=== PATIENT | male | born 1945 | race Caucasian/White ===

== ENCOUNTER 2016-11-30 11:01 | Day surgery (SDC) | payer MEDICARE, BC ==
[~2016-11-30 11:01] MED LIST: Dexamethasone 4 MG/ML 5 ML MDV ONE; EPINEPHrine 1:1000 1 MG/ML SDV ONE; Lactated Ringers 1,000 ML IV SCH; Lactated Ringers 1,000 ML ONE; Lidocaine 1%/Sod Bicarbonate in NS 8.4% 1 ML Syringe IV PRN; Ondansetron 4 MG/2 ML SDV ONE; Propofol 200 MG/20 ML SDV ONE; Rocuronium 50 MG/5 ML Vial ONE; Ropivacaine 0.5% 5 MG/ML 30 ML SDV ONE; Sodium Chloride 0.9% 10 ML Syringe FLUSH PRN; ceFAZolin 1 GM Vial ONE; fentaNYL 250 MCG/5 ML SDV ONE
[2016-11-30] MEDS ORDERED: fentaNYL 100 MCG/2 ML SDV ONE (11:03)
[2016-11-30] MEDS ORDERED: Midazolam 1 MG/ML 2 ML SDV ONE (11:03)
[2016-11-30] MEDS ORDERED: Lidocaine 1% 2 ML ONE (11:04)
[2016-11-30] MEDS ORDERED: ePHEDrine/Normal Saline 25 MG/5 ML Syringe ONE ×2 (11:27→13:12)
--- NOTE | 2016-11-30 11:37 | PCM.PREANE ---
Preanesthetic Assessment - Anesthesia/Transfusion/Family Hx Anesthesia History: Prior Anesthesia Without Reaction Family History of Anesthesia Reaction: No Transfusion History: No Prior Transfusion(s) - Review of Systems General: No Symptoms Pulmonary: No Symptoms Cardiovascular: No Symptoms Gastrointestinal: No symptoms Neurological: No Symptoms Other: Reports: None - Physical Assessment NPO Status Date: 11/29/16 NPO Status Time: 00:00 Pulse: 45 O2 Sat by Pulse Oximetry: 99 Respiratory Rate: 16 Blood Pressure: 144/88 Temperature: 36.7 C Height: 1.83 m Weight: 92.986 kg ASA Class: 2 Mental Status: Alert & Oriented x3 Airway Class: Mallampati = 1 Dentition: Reports: Normal Dentition Thyro-Mental Finger Breadths: 3 Mouth Opening Finger Breadths: 3 ROM/Head Extension: Full Lungs: Clear to auscultation, Normal respiratory effort Cardiovascular: Regular Rate, Regular Rhythm - Imaging/EKG Impressions: 11/22/16 EKG sinus ectopic atrial blanca 47 - Allergies Allergies/Adverse Reactions: Allergies Allergy/AdvReac Type Severity Reaction Status Date / Time No Known Allergies Allergy Verified 11/29/16 14:27 - Anesthesia Plan Pre-Op Medication Ordered: None - Acknowledgements Anesthesia Type Planned: General Anesthesia, Regional Block (interscalene block for post-op pain control) Pt an Appropriate Candidate for the Planned Anesthesia: Yes Alternatives and Risks of Anesthesia Discussed w Pt/Guardian: Yes Pt/Guardian Understands and Agrees with Anesthesia Plan: Yes PreAnesthesia Questionnaire HEENT History: Reports: Impaired vision, Other (see below) Other HEENT History: wears glasses, has partial Cardiovascular History: Reports: CAD, High cholesterol, [place], Stents Other Cardiovascular History: history of heart dysrhythmia, ischemic heart disease Respiratory History: Reports: Pneumonia, recurrent Gastrointestinal History: Reports: Other (see below) Other Gastrointestinal History: hemorrhoidectomy Genitourinary History: Reports: Renal calculus 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 History: Reports: None Musculoskeletal History: Reports: Other (see below) Other Musculoskeletal History: multilevel degenerative disc disease, R rotator cuff tear, cervclagia, knee and leg sprain Neurological History: Reports: None Psychiatric History: Reports: None Endocrine/Metabolic History: Reports: None Hematologic History: Reports: None Immunologic History: Reports: None Oncologic (Cancer) History: Reports: None Dermatologic History: Reports: None - Past Surgical History Head Surgeries/Procedures: Reports: None HEENT Surgical History: Reports: Oral surgery - SUBSTANCE USE Smoking Status *Q: Former Smoker (2008) Tobacco Use Within Last Twelve Months: No Second Hand Smoke Exposure: No Days Per Week of Alcohol Use: 0 Number of Drinks Per Day: 1 Total Drinks Per Week: 0 Recreational Drug Use History: No - HOME MEDS Home Medications: Home Meds Aspirin [Ecotrin] 81 mg PO DAILY 12/01/13 [History] atorvaSTATin [Lipitor] 80 mg PO DAILY 12/01/13 [History] Cyclobenzaprine [Flexeril] 10 mg PO TID PRN #40 tablet 11/30/16 [Rx] Hydrocodone/Acetaminophen [[place] 5-325 Tablet] 1 - 2 each PO Q6H PRN #40 tablet 11/30/16 [Rx] - CURRENT (IN HOUSE) MEDS Current Meds: Current Medications Lactated Ringer's (Ringers, Lactated) 1,000 mls @ 125 mls/hr IV ASDIRECTED INDERJIT Stop: 11/30/16 23:00 Lidocaine/Sodium Bicarbonate (Buffered Lidocaine 1% In Ns 8.4%) 0.25 ml IV ONETIME PRN PRN Reason: Prior to IV Start Stop: 11/30/16 18:00 Sodium Chloride (Saline Flush) 10 ml FLUSH ASDIRECTED PRN PRN Reason: Keep Vein Open Stop: 11/30/16 18:00 Discontinued Medications Cefazolin Sodium (Ancef) Confirm Administered Dose 2 gm .ROUTE .STK-MED ONE Stop: 11/30/16 10:26 Dexamethasone (Dexamethasone) Confirm Administered Dose 20 mg .ROUTE .STK-MED ONE Stop: 11/30/16 10:24 Ephedrine Sulfate (Ephedrine In Ns) Confirm Administered Dose 25 mg .ROUTE .STK- MED ONE Stop: 11/30/16 11:28 Epinephrine HCl (Adrenalin 1:1000) Confirm Administered Dose 1 mg .ROUTE .STK- MED ONE Stop: 11/30/16 10:43 Fentanyl (Sublimaze) Confirm Administered Dose 250 mcg .ROUTE .STK-MED ONE Stop: 11/30/16 10:25 Fentanyl (Sublimaze) Confirm Administered Dose 100 mcg .ROUTE .STK-MED ONE Stop: 11/30/16 11:04 Glycopyrrolate () Confirm Administered Dose 1 mg .ROUTE .STK-MED ONE Stop: 11/30/16 11:28 Lactated Ringer's (Ringers, Lactated) Confirm Administered Dose 1,000 mls @ as directed .ROUTE .STK-MED ONE Stop: 11/30/16 10:24 Lidocaine HCl (Xylocaine-Mpf 1%) Confirm Administered Dose 2 mls @ as directed .ROUTE .STK-MED ONE Stop: 11/30/16 11:05 Midazolam HCl (Versed 1 Mg/Ml) Confirm Administered Dose 2 mg .ROUTE .STK-MED ONE Stop: 11/30/16 11:04 Ondansetron HCl (Zofran) Confirm Administered Dose 4 mg .ROUTE .STK-MED ONE Stop: 11/30/16 10:24 Propofol (Diprivan 20 Ml) Confirm Administered Dose 200 mg .ROUTE .STK-MED ONE Stop: 11/30/16 10:25 Rocuronium [place] (Zemuron) Confirm Administered Dose 50 mg .ROUTE .STK-MED ONE Stop: 11/30/16 10:24 Ropivacaine (Naropin 0.5%) Confirm Administered Dose 30 ml .ROUTE .ST-MED ONE Stop: 11/30/16 10:43
[2016-11-30] MEDS ORDERED: Bupivacaine 0.25% 30 ML SDV ONE (11:41)
[2016-11-30] MEDS ORDERED: EPINEPHrine 1:1000 1 MG/ML 30 ML MDV ONE (11:41)
[2016-11-30] MEDS ORDERED: Meperidine PF 50 MG/ML Syringe IVPUSH PRN (12:39)
[2016-11-30] MEDS ORDERED: fentaNYL 100 MCG/2 ML SDV IVPUSH PRN (12:39)
[2016-11-30] MEDS ORDERED: Ondansetron 4 MG/2 ML SDV IVPUSH PRN (12:39)
[2016-11-30] MEDS ORDERED: HYDROmorphone 0.5 MG/0.5 ML Syringe IVPUSH PRN (12:39)
--- NOTE | 2016-11-30 12:42 | PCM.SN ---
- Free Text/Narrative Note: Note: 11/30/2016 1240 140/97 46 99% 13 Surgeon and pt request post-op pain control for right shoulder surgery risk of block failure, facial numbness, site infection, and chronic pain discussed with pt and agreed to proceed. All standard monitors est. EKG, BP, Pulse Ox, 2L O2 and 1ml versed, 1ml fentanyl pre-op dx. right shoulder pain post-op dx right shoulder arthroscopy pt for interscalene block placement all standard monitors est. pt ID time out performed IV sedation 1ml versed, 1ml fentanyl, 2L NC O2, sterile prep and drape of right neck and shoulder U/S placed with visualization of brachial plexus from clavicle to cricoid local skin infiltration 22ga. Stimplex A insulated needle visualized at brachial plexus nerve stimulator at .9 Cristine Amps stop at .34 Cristine Amps with good bicep twitch with 1ml NaCl and lose of twitch neg aspirations every 5ml of 0.5% ropivacaine and 1:200,000 epi total of 30ml injected all done with U/S guidance needle withdrawn no complications noted pt tolerated procedure well block settling in start procedure at 1158 end procedure at 1213 132/85 45 99% 14
--- NOTE | 2016-11-30 14:33 | PCM.POSTAN ---
POST ANESTHESIA ASSESSMENT - MENTAL STATUS Mental Status: alert, oriented - VITAL SIGNS Pulse Rate: 55 SaO2: 96 Resp Rate: 16 Blood Pressure: 139/83 Temperature: 36.6 C - RESPIRATORY Respiratory Status: respiratory rate WNL, airway patent, O2 saturation stable, supplemental oxygen - CARDIOVASCULAR CV Status: pulse rate WNL, blood pressure stable - GASTROINTESTINAL GI Status: no symptoms - PAIN Pain Score: 0 - POST OP HYDRATION Hydration Status: adequate & stable
[2016-11-30 17:19] VITALS: BP 140/88
--- NOTE | 2016-12-05 10:38 | PCM.OPNOTE ---
- General Post-Op/Procedure Note Date of Surgery/Procedure: 11/30/16 Operative Procedure(s): right shoulder video arthroscopy with massive rotator cuff repair and subacromial decompression Pre Op Diagnosis: right shoulder massive rotator cuff repair with impingement Post-Op Diagnosis: Same Anesthesia Technique: General ET tube, Regional block Primary Surgeon: Yan Allen Anesthesia Provider: Joel Pierre [employer] Superintendent: Josseline Morris EBL in mLs: 5 Complications: None Condition: Good
--- NOTE | 2016-12-05 11:12 | OR ---
DATE OF OPERATION: 11/30/2016 SURGEON: Yan Allen MD OPERATION PERFORMED: Right shoulder video arthroscopy with massive rotator cuff repair and subacromial decompression. PREOPERATIVE DIAGNOSIS: Right shoulder massive rotator cuff tear with impingement. POSTOPERATIVE DIAGNOSIS: Right shoulder massive rotator cuff tear with impingement. ANESTHESIA: General endotracheal intubation with supraclavicular block. ANESTHESIA PROVIDER: Joel Pierre CRNA. ART CLASS MODEL: Josseline Morris PA-C. ESTIMATED BLOOD LOSS: 5 mL. COMPLICATIONS: None. CONDITION: Stable. DESCRIPTION OF PROCEDURE: The patient was identified in the preop holding area, proper site was marked and identified by the surgeon. The patient was taken back to the operating theater, where after adequate anesthesia, the patient was placed in a lazy left lateral decubitus position. A wedge was placed posteriorly. All bony prominences were well padded. The right shoulder was then sterilely prepped and draped in the usual sterile fashion. OR time-out was performed. The patient received 2 g IV Ancef and 12 pounds of traction was applied to the right upper extremity. At this time, incision was made posteriorly and scope trocar was introduced through the posterior portal and into the glenohumeral joint. Cursory examination showed complete disruption of the biceps tendon to the labrum with labral fraying. There was grade 1 chondromalacia of the glenoid, otherwise, no other chondromalacia noted. At this time, with use of a spinal needle anterior portal was created and further examination showed complete tearing of the supra and infraspinatus as well as subscapularis tendon. At this time, it was decided we would do a subacromial subscapular tendon repair. The scope trocar was then introduced into the subacromial space. Spinal needle was used for creation of a lateral portal and through the lateral portal, I was able to pass a FiberTape twice through the subscapularis tendon and then a 4.75 mm SwiveLock anchor was placed in the lesser tuberosity and was tapped and the punch was used and then the anchor was placed. Tension was applied to the FiberTape and the subscapularis was found to have adequate repair at that time of the upper outer edge. At this time, attention was turned to the massive rotator cuff repair, was found to have good excursion of both the supra and infraspinatus tendons. Starting on anteriorly, we placed a 4.75 mm SwiveLock anchor anteriorly and another one posteriorly. Two limbs of FiberWire and 2 limbs of FiberTape were then passed through the anterior portion of the tear and then through the posterior another 2 limbs of FiberWire and 2 limbs of FiberTape were passed. The 2 anterior limbs of the FiberWire were then tied as well as the 2 limbs of the posterior FiberWire, which brought it over nicely. To complete the footprint, next we placed one 4.75 mm SwiveLock anchor laterally anteriorly and then tried to do that posteriorly but the bone was found to be not as adequate, so was placed more distal and anterior and a 5.5 anchor was then used at this time. It was found to have adequate watertight repair with a complete confucianism of the footprint at this time. At this time, a subacromial decompression was done with the patient noted to have a type 3 acromion. This was brought back to a smooth border. All loose bodies were irrigated from the shoulder, excess saline was irrigated from the shoulder, 3-0 nylon simple suture was used for closure of the skin, and the patient was placed in a soft dressing and a pillow sling. The patient tolerated the procedure well and sent to PACU in stable condition. RODRIGO /[id number]
== END 2016-11-30 17:10 | disposition home or self-care (01) ==
LOC: JD.SDS 11:01
PROVIDERS: ATTEND Orthopaedic Surgery
PROC: 0LQ14ZZ Repair Right Shoulder Tendon, Percutaneous Endoscopic Approach (ICD-10-PCS; principal; 2016-11-30)
PROC: 0RNJ4ZZ Release Right Shoulder Joint, Percutaneous Endoscopic Approach (ICD-10-PCS; 2016-11-30)
DX: M75.121 Complete rotator cuff tear or rupture of right shoulder, not specified as traumatic (principal); M75.41 Impingement syndrome of right shoulder; M94.211 Chondromalacia, right shoulder; I25.2 Old myocardial infarction; I25.10 Atherosclerotic heart disease of native coronary artery without angina pectoris; E78.00 Pure hypercholesterolemia, unspecified; M19.90 Unspecified osteoarthritis, unspecified site; Z79.82 Long term (current) use of aspirin; Z79.899 Other long term (current) drug therapy; Z87.442 Personal history of urinary calculi; Z87.891 Personal history of nicotine dependence; Z87.01 Personal history of pneumonia (recurrent); Z98.890 Other specified postprocedural states; M25.511 Pain in right shoulder
CPT/HCPCS: 29826; 29827; C1713; J0171; J0690; J1100; J2250; J2405; J2795; J3010; J7050; J7120; 01630; 64415; J2704; J3490

== ENCOUNTER 2020-04-17 19:57 | Emergency (ER) | payer MEDICARE, BC ==
[2020-04-17 20:12] VITALS: BP 146/109; PULSE 71
[2020-04-17] MEDS ORDERED: Piperacillin/Tazobactam 4.5 GM in Sodium Chloride 0.9% 100 ML IV ONE (20:29)
[2020-04-17] MEDS ORDERED: Diphtheria,Pertussis(Acell),Tetanus Vaccine 0.5 ML Syringe IM ONE (20:29)
--- NOTE | 2020-04-17 20:54 | EDM.PDOC ---
ED HPI GENERAL MEDICAL PROBLEM - General Chief Complaint: Bite:Animal, Insect Stated Complaint: CAT BITE (SWOLLEN HAND) Time Seen by Provider: 04/17/20 20:07 Source of Information: Reports: Patient History Limitations: Reports: No Limitations - History of Present Illness INITIAL COMMENTS - FREE TEXT/NARRATIVE: Patient is a 74-year-old male presenting to the emergency department with complaints of painful swelling to his left hand. He states 2 days ago he was bitten by his cat "maximo holguin ". He started having small amount of swelling to the hand yesterday and has been progressively worsening since then. He reports having low-grade fever at home with reported T-max of 100.5. He has not taken any antipyretic therapy. He denies any nausea, vomiting, weakness, or fatigue. He states that the cat did have it's rabies vaccination; however, he is due for a tdap. Vital signs in triage had a temporal temperature 99.3, pulse 71, respiratory 20, blood pressure 146/109, oxygen saturation of 98% on room air. Left Hand Pain Score (Numeric/FACES): 1 - Related Data Allergies Allergy/AdvReac Type Severity Reaction Status Date / Time No Known Allergies Allergy Verified 04/17/20 20:12 Home Meds: Home Meds Aspirin [Ecotrin EC] 81 mg PO DAILY 12/01/13 [History] atorvaSTATin [Lipitor] 40 mg PO DAILY 12/01/13 [History] Past Medical History HEENT History: Reports: Impaired Vision, Other (See Below) Other HEENT History: wears glasses, has partial Cardiovascular History: Reports: CAD, High Cholesterol, [place], Stents Other Cardiovascular History: history of heart dysrhythmia, ischemic heart disease Respiratory History: Reports: Pneumonia, Recurrent Gastrointestinal History: Reports: Other (See Below) Other Gastrointestinal History: hemorrhoidectomy Genitourinary History: Reports: Renal Calculus LINE INSPECTOR History: Reports: None Musculoskeletal History: Reports: Other (See Below) Other Musculoskeletal History: multilevel degenerative disc disease, R rotator cuff tear, cervclagia, knee and leg sprain Neurological History: Reports: None Psychiatric History: Reports: None Endocrine/Metabolic History: Reports: None Hematologic History: Reports: None Immunologic History: Reports: None Oncologic (Cancer) History: Reports: None Dermatologic History: Reports: None - Past Surgical History Head Surgeries/Procedures: Reports: None HEENT Surgical History: Reports: Oral Surgery Social & Family History - Family History Family Medical History: Noncontributory - Tobacco Use Smoking Status *Q: Former Smoker Used Tobacco, but Quit: Yes Month/Year Tobacco Last Used: 2005 - Caffeine Use Caffeine Use: Reports: Soda - Recreational Drug Use Recreational Drug Use: No ED ROS GENERAL - Review of Systems Review Of Systems: See Below Constitutional: Reports: Fever. Denies: Malaise, Weakness, Fatigue, Decreased Appetite HEENT: Reports: No Symptoms Respiratory: Reports: No Symptoms Cardiovascular: Reports: No Symptoms Endocrine: Reports: No Symptoms GI/Abdominal: Reports: No Symptoms. Denies: Nausea, Vomiting : Reports: No Symptoms Musculoskeletal: Reports: No Symptoms Skin: Reports: Erythema (Left hand.) Neurological: Reports: No Symptoms Psychiatric: Reports: No Symptoms Hematologic/Lymphatic: Reports: No Symptoms Immunologic: Reports: No Symptoms ED EXAM, ANIMAL BITE - Physical Exam Exam: See Below General Appearance: Alert, WD/WN, No Apparent Distress Respiratory/Chest: No Respiratory Distress, Lungs Clear, Normal Breath Sounds, No Accessory Muscle Use, Chest Non-Tender Cardiovascular: Normal Peripheral Pulses, Regular Rate, Rhythm, No Edema, No Gallop, No JVD, No Murmur, No Rub Extremities: Other (3 small puncture wounds to the ventral aspect of the left hand near the second MCP joint. One small puncture wound to the dorsal aspect o f the hand near the second MCP joint. Erythema and edema to the second digit as well as the proximal aspect of the third digit. Erythema encompasses the area of the second and third MCP joints. No obvious drainage or pustules present.) Neurological: Alert, Oriented, CN II-XII Intact, Normal Cognition, Normal Gait, Normal Reflexes, No Motor/Sensory Deficits Course - Vital Signs Last Recorded V/S: Last Vital Signs Temp 99.3 F 04/17/20 20:25 Pulse 71 04/17/20 20:07 Resp 20 04/17/20 20:07 BP 146/109 H 04/17/20 20:07 Pulse Ox 98 04/17/20 20:07 - Orders/Labs/Meds Orders: Active Orders 24 hr Category Date Time Status Vaccines to be Administered [RC] PER UNIT ROUTINE Care 04/17/20 20:29 Active Meds: Medications Discontinued Medications Generic Name Dose Route Start Last Admin Trade Name Freq PRN Reason Stop Dose Admin Diphtheria/Tetanus/Acell Pertussis 0.5 ml 04/17/20 20:29 04/17/20 20:51 Adacel IM 04/17/20 20:30 0.5 ml .ONCE ONE Administration Piperacillin Sod/Tazobactam 100 mls @ 200 mls/hr 04/17/20 20:29 04/17/20 20:46 Sod 4.5 gm/ Sodium Chloride IV 04/17/20 20:58 200 mls/hr ONETIME ONE Administration - Re-Assessments/Exams Free Text/Narrative Re-Assessment/Exam: Patient is a 74-year-old male presenting to the emergency department with complaints of redness and warmth to his left hand after being bit by his cat 2 days ago. On exam, he does have redness, warmth, and erythema to the second digit as well as the proximal aspect of the third digit. There are a total of 4 puncture wounds, 3 in the ventral aspect of the hand and one on the dorsal aspect of the hand. There is mild erythema and warmth encompassing the area of the second and third MCP joints. Area of warmth and erythema marked with a skin marker. We will give the patient a first dose of Zosyn in the emergency department today as well as his tetanus vaccination. He will be started on Augmentin for 14 days for treatment of the infection. I emphasized the importance of returning to the ER if he should have any worsening symptoms. Recommended that if the area of redness extends beyond the line or he does not see improvement over the next 2 days, he needs to return to the emergency department for reevaluation. Also emphasized that if he develops high fevers, chills, nausea, opening, or any other concerning symptoms he should return to the ER for evaluation. He verbalized understanding of this. Discharge instructions as documented. Departure - Departure Time of Disposition: 21:04 Disposition: Home, Self-Care 01 Condition: Good Clinical Impression: Cat bite of hand Qualifiers: Encounter type: initial encounter Laterality: left Qualified Code(s): S61.452A - Open bite of left hand, initial encounter; W55.01XA - Bitten by cat, initial encounter - Discharge Information *PRESCRIPTION DRUG MONITORING PROGRAM REVIEWED*: No *COPY OF PRESCRIPTION DRUG MONITORING REPORT IN PATIENT SHAUN: No Instructions: Animal Bite, Adult, [id number] Referrals: Eric Reyes MD [Primary Care Provider] - Forms: ED Department Discharge Additional Instructions: You were seen in the emergency department today for pain and swelling to your left hand after being bitten by your cat. While in the ER, you received a dose of IV antibiotics, as well as a tetanus vaccine. You have been started on the antibiotic augmentin. Take this medication every 12 hours for 14 days. You will have extra pills in your prescription at the end of your treatment. As we discussed, it is important that you be mindful of your symptoms. If you feel that the redness and swelling is worsening or spreads beyond that markings on your hand or if you experience any worsening symptoms such as worsening fever/chills, nausea, vomiting, fatigue or any other concerning symptoms, please return to the ER for reevaluation. Sepsis Event Note (ED) - Evaluation Sepsis Screening Result: No Definite Risk - Focused Exam Vital Signs: Vital Signs Temp Pulse Resp BP Pulse Ox 04/17/20 20:25 99.3 F 04/17/20 20:07 100.2 F 71 20 146/109 H 98 - My Orders Last 24 Hours: My Active Orders 04/17/20 20:29 Vaccines to be Administered [RC] PER UNIT ROUTINE - Assessment/Plan Last 24 Hours: My Active Orders 04/17/20 20:29 Vaccines to be Administered [RC] PER UNIT ROUTINE
== END 2020-04-17 21:30 | disposition home or self-care (01) ==
LOC: JD.ED 19:57
DX: S61.452A Open bite of left hand, initial encounter (principal); I25.10 Atherosclerotic heart disease of native coronary artery without angina pectoris; I25.2 Old myocardial infarction; Z95.5 Presence of coronary angioplasty implant and graft; Z79.82 Long term (current) use of aspirin; Z79.899 Other long term (current) drug therapy; Z23 Encounter for immunization; Z87.891 Personal history of nicotine dependence; W55.01XA Bitten by cat, initial encounter
CPT/HCPCS: 90471; 90715; 96365; 99283; J2543; J7050

== ENCOUNTER 2022-02-24 11:59 | Emergency (ER) | payer MEDICARE, BC ==
[2022-02-24 12:19] VITALS: BP 116/106; PULSE 44
[2022-02-24] MEDS ORDERED: Lidocaine 1% 10 ML MDV INJECT ONE (12:48)
[2022-02-24] MEDS ORDERED: Cephalexin 500 MG Cap PO ONE (13:57)
== END 2022-02-24 14:31 | disposition home or self-care (01) ==
LOC: JD.ED 11:59
DX: S62.635B Displaced fracture of distal phalanx of left ring finger, initial encounter for open fracture (principal); I25.10 Atherosclerotic heart disease of native coronary artery without angina pectoris; I25.2 Old myocardial infarction; Z87.891 Personal history of nicotine dependence; Z79.82 Long term (current) use of aspirin; Z88.8 Allergy status to other drugs, medicaments and biological substances; X50.0XXA Overexertion from strenuous movement or load, initial encounter
CPT/HCPCS: 12002; 73140; 99283; A9270

== ENCOUNTER 2023-06-15 11:20 | Emergency (ER) | payer MEDICARE, BC ==
[2023-06-15 16:18] VITALS: BP 145/68; PULSE 52
== END 2023-06-15 15:51 | disposition home or self-care (01) ==
LOC: JD.ED 11:20
DX: S83.91XA Sprain of unspecified site of right knee, initial encounter (principal); M79.651 Pain in right thigh; E78.00 Pure hypercholesterolemia, unspecified; I25.9 Chronic ischemic heart disease, unspecified; Z95.5 Presence of coronary angioplasty implant and graft; I25.10 Atherosclerotic heart disease of native coronary artery without angina pectoris; W19.XXXA Unspecified fall, initial encounter; Y93.39 Activity, other involving climbing, rappelling and jumping off
CPT/HCPCS: 73562-26-RT; 73562-RT; 99283

== ENCOUNTER 2023-10-10 15:21 | Emergency (ER) | payer MEDICARE, BC ==
[2023-10-10] MEDS ORDERED: Atropine 0.4 MG/ML SDV IVPUSH ONE (15:40)
[2023-10-10] MEDS: Atropine 0.1 MG/ML 10 ML Syringe IVPUSH ONE ×2 (15:54→17:07)
[2023-10-10] MEDS: Sodium Chloride 0.9% 1,000 ML IV ONE ×2 (15:55→17:15)
[2023-10-10] MEDS: Atropine 0.4 MG/ML SDV IVPUSH ONE (16:08)
[2023-10-10 16:18] LABS: A/G RATIO 1.5 (1-2); ALBUMIN 4.2 g/dl (3.4-5.0); ANION GAP 15.1 (5-15); BILIRUBIN TOTAL 0.9 mg/dL (0.2-1.0); BUN/CREATININE RATIO 13.1 (14-18); CALCIUM 8.9 mg/dL (8.5-10.1); CREATININE 1.3 mg/dL (0.7-1.3); EST CRCL DRUG DOSING (CG) 53.06 mL/min; MAGNESIUM 2.2 mg/dL (1.8-2.4); POTASSIUM,K 4.1 mEq/L (3.5-5.1); PROTEIN TOTAL,TP 7.1 g/dl (6.4-8.2)
[2023-10-10 16:29] LABS: BASOPHILS PERCENT AUTO 0.3 % (0.0-1.0); EOSINOPHILS ABSOLUTE AUTO 0.1 K/mm3 (0.0-0.4); EOSINOPHILS PERCENT AUTO 0.6 % (0.0-6.0); HEMATOCRIT 43.2 % (42.0-52.0); HEMOGLOBIN 14.8 gm/dl (14.0-18.0); IMMATURE GRAN ABSOLUTE AUTO 0.03 K/mm3 (0.00-0.05); IMMATURE GRAN PERCENT AUTO 0.3 % (0.0-0.4); LYMPHOCYTES PERCENT AUTO 9.2 % (24.0-44.0); MEAN CORPUSCULAR HGB CONC 34.3 g/dl (32.0-36.0); MEAN CORPUSCULAR VOLUME 93.5 fl (83.0-99.0); MEAN PLATELET VOLUME 9.1 fl (9.4-12.4); MONOCYTES ABSOLUTE AUTO 0.6 K/mm3 (0.0-0.8); MONOCYTES PERCENT AUTO 5.6 % (0.0-8.0); NEUTROPHILS ABSOLUTE AUTO 8.7 K/mm3 (1.8-7.7); PLATELET COUNT,PLT 181 K/mm3 (150-400); RED BLOOD CELL COUNT 4.62 M/mm3 (4.52-5.90); WHITE BLOOD CELL COUNT,WBC 10.39 K/mm3 (3.9-11.3)
[2023-10-10] MEDS: Atropine 0.1 MG/ML 10 ML Syringe ONE (17:07)
[2023-10-10] MEDS: Sodium Chloride 0.9% 10 ML Syringe FLUSH PRN (17:16)
[2023-10-10] MEDS: Norepinephrine 4 MG in Dextrose 5% in Water 246 ML IV SCH (17:25)
[2023-10-10] MEDS: Sodium Chloride 0.9% 100 ML IV SCH (18:28)
[2023-10-10] MEDS: Iopamidol 755 Mg/ML 100 ML Bottle IVPUSH ONE (18:28)
[2023-10-10] MEDS: HYDROmorphone 0.5 MG/0.5 ML Syringe IVPUSH ONE (21:01)
[2023-10-10] MEDS: Lactated Ringers 1,000 ML IV SCH (21:01)
[2023-10-11 00:02] VITALS: BP 102/83; PULSE 60
== END 2023-10-10 21:15 ==
LOC: JD.ED 15:21
DX: I95.89 Other hypotension (principal); I71.010 Dissection of ascending aorta; I25.10 Atherosclerotic heart disease of native coronary artery without angina pectoris; I10 Essential (primary) hypertension; I25.2 Old myocardial infarction; Z95.5 Presence of coronary angioplasty implant and graft; Z79.82 Long term (current) use of aspirin; Z79.899 Other long term (current) drug therapy
CPT/HCPCS: 36415; 36556; 70450; 70450-26; 71045; 71045-26; 71275; 71275-26; 80053; 82947; 83735; 84484; 85025; 85379; 93005; 93010; 96365; 96366; 96375; 99285; 99285-25; C1751; J0461; J1170; J3490; J7030; J7060; J7120; Q9967